=== PATIENT | male | born 1970 | race Two or more races ===

== ENCOUNTER 2023-01-28 19:35 | Emergency (ER) | payer OTHER ==
[~2023-01-28] VITALS: Ht 177.8 cm; Wt 86.3 kg
[2023-01-28 21:11] VITALS: BP 104/62; PULSE 76; RESP 16; TEMP 97.7; O2SAT 97
== END 2023-01-28 21:23 | disposition home or self-care (01) ==
LOC: ER 19:35
DX: S69.91XA Unspecified injury of right wrist, hand and finger(s), initial encounter (principal); Z88.0 Allergy status to penicillin; X58.XXXA Exposure to other specified factors, initial encounter; Y93.89 Activity, other specified; Y92.89 Other specified places as the place of occurrence of the external cause; Y99.8 Other external cause status
CPT/HCPCS: 73130